=== PATIENT | male | born 1995 | race Caucasian/White ===

== ENCOUNTER 2020-08-01 10:29 | Emergency (ER) | payer BC, OTHER ==
[~2020-08-01] VITALS: Ht 175.3 cm; Wt 90.7 kg
[2020-08-01 10:30] VITALS: BP_SYST 121
--- NOTE | 2020-08-01 10:30 | NUR ---
Patient to ER H1 to gown for evaluation. Side rails up.
--- NOTE | 2020-08-01 10:30 | NUR ---
Pt brought in via law enforcement for ok to book. Pt only complaint is R knee which has recently had torn ACL and torn Meniscus. Pt calm and cooperative, VSS, awaiting
--- NOTE | 2020-08-01 10:35 | NUR ---
HINA Castillo at bedside examining patient.
--- NOTE | 2020-08-01 10:40 | NUR ---
Patient given written and verbal discharge instructions and verbalizes understanding. ER MD discussed with patient the results and treatment provided. Patient in stable condition. ID arm band removed. Patient educated on pain management and to follow up with PMD. Pain Scale 0/10. Opportunity for questions provided and answered. Medication side effect fact sheet provided.
[2020-08-01 10:41] VITALS: BP_SYST 121
[2020-08-01] MEDS: IBUPROFEN 800 MG TABLET PO ONE (10:48)
== END 2020-08-01 10:40 ==
LOC: SED 10:29
DX: M25.561 Pain in right knee (principal); J45.909 Unspecified asthma, uncomplicated; F17.210 Nicotine dependence, cigarettes, uncomplicated; F12.90 Cannabis use, unspecified, uncomplicated; F15.90 Other stimulant use, unspecified, uncomplicated
CPT/HCPCS: 99283